=== PATIENT | male | born 2000 | race Hispanic/Latino ===

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

== ENCOUNTER 2021-06-25 15:25 | Emergency (ER) | payer OTHER ==
[~2021-06-25] VITALS: Ht 152.4 cm; Wt 40.8 kg
[2021-06-25] MEDS ORDERED: IBUPROFEN 600 MG TABLET PO ONE (16:00)
[2021-06-25] MEDS ORDERED: CEPHALEXIN 500 MG CAPSULE PO ONE (16:00)
[2021-06-25] MEDS ORDERED: CEPH500B PO (16:14)
[2021-06-25] MEDS ORDERED: IBUP-2070 PO (16:14)
[2021-06-25 16:27] VITALS: BP 125/73
== END 2021-06-25 16:30 | disposition home or self-care (01) ==
LOC: EDH 15:25
DX: S80.01XA Contusion of right knee, initial encounter (principal); S90.31XA Contusion of right foot, initial encounter; S80.211A Abrasion, right knee, initial encounter; Z79.1 Long term (current) use of non-steroidal anti-inflammatories (NSAID); X58.XXXA Exposure to other specified factors, initial encounter; Y93.89 Activity, other specified; Y92.89 Other specified places as the place of occurrence of the external cause; Y99.8 Other external cause status
CPT/HCPCS: 73562; 73630

== ENCOUNTER 2022-05-06 16:49 | Emergency (ER) | payer OTHER ==
[~2022-05-06] VITALS: Ht 152.4 cm; Wt 41.5 kg
[~2022-05-06 16:49] MED LIST: CEPH500B PO; IBUP-2070 PO
[2022-05-06] MEDS ORDERED: CEPH500B PO (17:37)
[2022-05-06 17:45] VITALS: BP 123/78
== END 2022-05-06 18:02 | disposition home or self-care (01) ==
LOC: EDH 16:49
DX: S01.01XA Laceration without foreign body of scalp, initial encounter (principal); Z79.1 Long term (current) use of non-steroidal anti-inflammatories (NSAID); Z79.2 Long term (current) use of antibiotics; W26.8XXA Contact with other sharp object(s), not elsewhere classified, initial encounter; Y93.89 Activity, other specified; Y92.89 Other specified places as the place of occurrence of the external cause; Y99.8 Other external cause status
CPT/HCPCS: 12001

== ENCOUNTER 2022-05-18 12:56 | Emergency (ER) | payer OTHER ==
[~2022-05-18] VITALS: Ht 160 cm; Wt 43.1 kg
[2022-05-18 13:27] VITALS: BP 119/70
== END 2022-05-18 14:05 | disposition home or self-care (01) ==
LOC: EDH 12:56
DX: S01.01XD Laceration without foreign body of scalp, subsequent encounter (principal); Z48.02 Encounter for removal of sutures; Z79.899 Other long term (current) drug therapy; X58.XXXD Exposure to other specified factors, subsequent encounter
CPT/HCPCS: 99281